=== PATIENT | female | born 1950 | race Caucasian/White ===

== ENCOUNTER 2022-08-27 10:07 | Day surgery (SDC) | payer MEDICARE ==
[2022-08-23 12:49] VITALS: BMI 23.2
[2022-08-27] MEDS ORDERED: FENTANYL 50 MCG/ML 1 ML VIAL ONE (10:32)
[2022-08-27] MEDS ORDERED: PROPOFOL 200 MG/20 ML VIAL ONE (11:00)
[2022-08-27] MEDS ORDERED: ePHEDrine 50 MG/ML VIAL ONE (11:00)
[2022-08-27] MEDS ORDERED: Ondansetron PF 4 MG/2 ML Vial ONE (11:00)
[2022-08-27] MEDS ORDERED: Dexamethasone 20 MG/5 ML VIAL ONE (11:00)
== END 2022-08-27 13:50 | disposition home or self-care (01) ==
LOC: MRI 10:07
DX: L03.211 Cellulitis of face (principal); E03.9 Hypothyroidism, unspecified; M19.90 Unspecified osteoarthritis, unspecified site; F40.240 Claustrophobia; F41.9 Anxiety disorder, unspecified; Z79.2 Long term (current) use of antibiotics; Z79.890 Hormone replacement therapy; Z79.899 Other long term (current) drug therapy; Z98.890 Other specified postprocedural states
CPT/HCPCS: 70543; 82565; J1100; J2405; J2704; J3010; J3490